=== PATIENT | male | born 1960 | race African-American/Black ===

== ENCOUNTER 2021-10-02 10:27 | Outpatient (CLI) | payer OTHER ==
[2021-10-02 11:35] LABS: Estimated GFR-MDRD - POC Greater than 90
== END 2021-10-02 10:28 | disposition home or self-care (01) ==
LOC: CSHMRI 10:27
PROVIDERS: ATTEND Specialist
DX: H91.90 Unspecified hearing loss, unspecified ear (principal)
CPT/HCPCS: 70553; 82565